=== PATIENT | female | born 1975 | race Asian ===

== ENCOUNTER 2020-07-18 11:31 | Outpatient (CLI) | payer OTHER, SELFPAY ==
--- NOTE | ~2020-07-18 | MM_ITS ---
EXAMINATION: MM screening mirna BI w bob HISTORY: Screening TECHNIQUE: Craniocaudal and mediolateral oblique 3-D tomosynthesis images were obtained and synthetic 2-D images were generated. CAD analysis was submitted and interpreted. COMPARISON: No prior mammogram is available for comparison at this institution. BREAST PARENCHYMAL COMPOSITION: The breasts are heterogeneously dense, which may obscure small masses . FINDINGS: There is focal asymmetry inferiorly in the right breast on MLO view. Left breast is unremar kable without evidence for malignancy. IMPRESSION: 1. Focal breast asymmetry inferiorly in the right breast. 2. Additional mammographic views and possible breast ultrasound are recommended. BI-RADS Category 0: Incomplete: Needs additional imaging evaluation. Reviewed, dictated and finalized at location A. IMPRESSION: 1. Focal breast asymmetry inferiorly in the right breast. 2. Additional mammographic views and possible breast ultrasound are recommended . BI-RADS Category 0: Incomplete: Needs additional imaging evaluation.
== END 2020-07-18 11:32 | disposition home or self-care (01) ==
LOC: ANHIMG 11:36
PROVIDERS: PCP Obstetrics & Gynecology; Visit Provider Obstetrics & Gynecology
DX: Z12.31 Encounter for screening mammogram for malignant neoplasm of breast (principal); R92.8 Other abnormal and inconclusive findings on diagnostic imaging of breast
CPT/HCPCS: 77063; 77067

== ENCOUNTER 2020-07-19 12:33 | Outpatient (CLI) | payer OTHER, SELFPAY ==
--- NOTE | ~2020-07-19 | MMUS_ITS ---
EXAMINATION: MM diagnostic mammo unilat RT, US breast RT complete HISTORY: Follow-up breast asymmetry TECHNIQUE: Additional 3-D tomosynthesis images of the right breast were performed and synthetic 2-D i mages were generated. CAD analysis was submitted and interpreted. High resolution right breast ultras ound was performed. COMPARISON: 07/18/2020 BREAST PARENCHYMAL COMPOSITION: Breast composed of scattered areas of fibroglandular density. FINDINGS: MAMMOGRAPHIC FINDINGS: There are no suspicious masses, calcifications or architectural distortion in the right breast to sug gest malignancy. ULTRASOUND: Right breast ultrasound: There is a 5 mm cyst in the subareolar location of the right breast. There lymph nodes in the 10:00 p osition of the right breast, largest measuring 1.8 cm with normal fatty hilum. No suspicious masses t o suggest malignancy. IMPRESSION: 1. No evidence for malignancy in the right breast. 2. Routine yearly screening mammogram and regular clinical breast examination are recommended. BI-RADS Category 2: Benign finding(s). Reviewed, dictated and finalized at location A. IMPRESSION: 1. No evidence for malignancy in the right breast. 2. Routine yearly screening mammogram and regular clinical breast examination a re recommended. BI-RADS Category 2: Benign finding(s).
== END 2020-07-19 12:34 | disposition home or self-care (01) ==
PROVIDERS: PCP Obstetrics & Gynecology; Visit Provider Obstetrics & Gynecology
DX: R92.8 Other abnormal and inconclusive findings on diagnostic imaging of breast (principal)
CPT/HCPCS: 76641; 77065

== ENCOUNTER 2020-11-30 12:23 | Outpatient (CLI) | payer OTHER, SELFPAY ==
--- NOTE | ~2020-11-30 | MR_ITS ---
EXAMINATION: MR knee LT wo con DATE: 11/30/2020 13:43 INDICATION: Left knee pain with swelling, mass or lump. TECHNIQUE: Magnetic resonance imaging (MRI) of the left knee was performed without intravenous contra st. Sequences included coronal PD-weighted FSE, coronal PD-weighted FS FSE, sagittal T2-weighted FSE , sagittal PD-weighted FS FSE and axial PD weighted fat saturated FSE. COMPARISON: None. FINDINGS: Medial compartment: There is medial extrusion of the medial meniscal body. Note definitive meniscal tear. Extensive carti jens loss along the medial tibial plateau which appears to reach full/near full-thickness along the a nterior half where there is mild scattered subarticular edema. Similar pattern of partial-thickness c artilage loss beginning at the junction of the mid to posterior weightbearing medial femoral condyle becoming more severe anteriorly or develops also full/near full-thickness. There is mild cortical irr egularity and subarticular edema along the anterior weightbearing medial femoral condyle. Small octavio nal osteophytes are present. Lateral compartment: Lateral meniscus is normal. There is a small central/subchondral osteophyte with loss of the overlyin g cartilage along the medial margin of the mid weightbearing lateral femoral condyle. Less severe par tial thickness cartilage loss without degenerative subchondral changes along the medial side of the a nterior weightbearing lateral femoral condyle and along the posterior weightbearing lateral femoral c ondyle. The cartilage at the lateral tibial plateau appears relatively preserved. Small marginal oste ophytes are present. Patellofemoral compartment: Partial-thickness cartilage loss with chondral surface regular date and fissuring involving greater t roy 50% the cartilage thickness but without degenerative subchondral changes. Deep chondral fissuring with underlying cortical irregularity at the inferior aspect of the medial trochlea. Less severe sca ttered chondral surface irregularity along portions of the remainder of the trochlea. Ligaments and tendons: Anterior and posterior cruciate ligaments are normal. The medial collateral ligament and fibular sharif ateral ligament complex are normal. The extensor mechanism is normal. The visualized medial and later al hamstring tendons as well as the iliotibial band are normal. Fluid: Physiologic amount of fluid in the joint space. No loose osteochondral bodies identified. Osseous/other: No fracture or abnormal marrow replacing process. No abnormal masses or significant soft tissue swell ing or subcutaneous edema evident about the knee. IMPRESSION: 1. 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 Reviewed, dictated and finalized at location A. [employer] IMPRESSION: 1. 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
--- NOTE | ~2020-11-30 | MR_ITS ---
EXAMINATION: MR knee RT wo con DATE: 11/30/2020 13:43 INDICATION: Pain and swelling, mass and lump at the right knee. TECHNIQUE: Magnetic resonance imaging (MRI) of the right knee was performed without intravenous contr ast. Sequences included coronal PD-weighted FSE, coronal PD-weighted FS FSE, sagittal T2-weighted FS E, sagittal PD-weighted FS FSE and axial PD weighted fat saturated FSE. COMPARISON: None. FINDINGS: Medial compartment: Medial extrusion of the medial meniscal body without discrete tear. Extensive cartilage loss along th e medial tibial plateau which appears to reach full/near full-thickness along the anterior half where there is mild scattered subarticular edema. Similar pattern of partial-thickness cartilage loss begi nning at the junction of the mid weightbearing medial femoral condyle becoming more severe anteriorly where it also approaches full/near full-thickness. There is mild cortical irregularity and subarticu lar edema along the anterolateral weightbearing medial femoral condyle. Small marginal osteophytes ar e present. Lateral compartment: Lateral meniscus is normal. Small central/subchondral osteophyte with loss of the overlying cartilage along the medial margin of the mid weightbearing lateral femoral condyle. Remaining cartilage in the lateral compartment appears relatively preserved. Patellofemoral compartment: Tarsal thickness chondral ulceration and deep fissuring with a few foci of subarticular edema at the patellar apical ridge and immediately adjacent origins of the medial and lateral facets. Deep chondra l ulceration and fissuring with underlying cortical irregularity and mild subarticular edema and cyst ic change along the inferior aspect of the medial trochlea. Ligaments and tendons: Anterior and posterior cruciate ligaments are normal. The medial collateral ligament and fibular sharif ateral ligament complex are normal. The extensor mechanism is normal. The visualized medial and later al hamstring tendons as well as the iliotibial band are normal. Fluid: Physiologic amount of fluid in the joint space. No loose osteochondral bodies identified. Osseous/other: No abnormal masses or significant soft tissue swelling or subcutaneous edema evident about the knee. IMPRESSION: 1. Tricompartmental osteoarthritis, moderate to severe in the medial compartment and mild but with sm all regions of high-grade chondromalacia in the lateral and patellofemoral compartments, with very si milar pattern as seen in the contralateral left knee. Reviewed, dictated and finalized at location A. EN THERAPIST IMPRESSION: 1. Tricompartmental osteoarthritis, moderate to severe in the medial compartmen t and mild but with small regions of high-grade chondromalacia in the lateral a nd patellofemoral compartments, with very similar pattern as seen in the contra lateral left knee.
== END 2020-11-30 12:24 | disposition home or self-care (01) ==
LOC: ANHIMG 12:24
PROVIDERS: Visit Provider Obstetrics & Gynecology
DX: M79.89 Other specified soft tissue disorders (principal); M17.0 Bilateral primary osteoarthritis of knee
CPT/HCPCS: 73721

== ENCOUNTER 2021-04-12 09:39 | Outpatient (NON) | payer OTHER, SELFPAY | END 2021-04-12 09:40 | disposition home or self-care (01) | PROVIDERS: Visit Provider Obstetrics & Gynecology | DX: R39.9 Unspecified symptoms and signs involving the genitourinary system (principal) | CPT/HCPCS: 87086; 87088 ==